=== PATIENT | female | born 1955 | race Caucasian/White ===

== ENCOUNTER 2018-01-13 19:53 | Observation (INO) | payer MEDICAID, OTHER ==
[2018-01-13] MEDS ORDERED: ONDANSETRON INJ 4 MG/2 ML VIAL IV ONE (20:18)
--- NOTE | 2018-01-13 20:44 | RAD ---
EXAM DESCRIPTION: Chest,1 View CLINICAL HISTORY: 62 years Female, chest pain COMPARISON: None. FINDINGS: No consolidation. No pneumothorax. No significant pleural effusion. Cardiac silhouette appears mildly enlarged. Osseous structures are unremarkable. IMPRESSION: No acute findings. Electronically signed by: Serg Wagoner MD 01/13/2018 8:42 PM CDT
--- NOTE | 2018-01-13 23:07 | ED.PDOC ---
History of Present Illness - General Chief Complaint: Chest Pain/MA Stated Complaint: CP, SOB, N/V, lightheaded Time Seen by Provider: 01/13/18 20:04 Source: patient, family Exam Limitations: no limitations - History of Present Illness Initial Comments: Says she hasn't felt right since noon today. Malaise, nausea, anxiety all of which she had with her MA in March. This afternoon she has had chest heaviness sporadically. During her heart cath in March one stent was placed but she was told she had another area of concern. Timing/Duration: 4-6 hours Severity: moderate Location: central Activities at Onset: none Prior Chest Pain/Cardiac Workup: cardiac cath, heart attack Improving Factors: nothing Worsening Factors: nothing Nitro Today/Relief: no nitro taken today Aspirin Treatment Today: 325 mg x 1, provided at home Associated Symptoms: chest pain, malaise, nausea/vomiting, shortness of breath, weakness Allergies/Adverse Reactions: Allergies NO KNOWN ALLERGY Allergy (Verified 01/13/18 21:54) Home Medications: Ambulatory Orders Albuterol Sulfate Nebs [Proventil Nebs] 2.5 mg INH BID 04/17/15 Cyclobenzaprine HCl [Flexeril] 5 mg PO TID PRN #45 tab 04/17/15 Ergocalciferol [Vitamin D] 50,000 unit PO WKLY 04/17/15 Escitalopram [Lexapro] 10 mg PO DAILY 04/17/15 Glipizide 20 mg PO DAILY 04/17/15 Insulin Glargine [Toujeo Solostar] 30 unit SC DAILY 04/17/15 Losartan Potassium 25 mg PO BID 04/17/15 Metformin HCl 1,000 mg PO BID 04/17/15 Trazodone HCl 50 mg PO DAILY 04/17/15 amLODIPine BESYLATE [Norvasc] 10 mg PO DAILY 04/17/15 Review of Systems - Review of Systems Constitutional: States: see HPI EENTM: States: no symptoms reported Respiratory: States: see HPI. Denies: cough Cardiology: States: see HPI, edema. Denies: syncope Gastrointestinal/Abdominal: States: see HPI, diarrhea, nausea. Denies: abdominal pain, constipation Genitourinary: States: no symptoms reported Musculoskeletal: States: no symptoms reported Skin: States: no symptoms reported Neurological: States: no symptoms reported Endocrine: States: no symptoms reported Hematologic/Lymphatic: States: no symptoms reported, other - Takes Brilinta Past Medical History (General) - Patient Medical History Hx Seizures: No Hx Stroke: No Hx Dementia: No Hx Asthma: No Hx of COPD: No Hx Cardiac Disorders: Yes - heart attack in 2016 Hx Congestive Heart Failure: Yes Hx Pacemaker: No Hx Hypertension: Yes Hx Thyroid Disease: Yes Hx Diabetes: Yes Hx Gastroesophageal Reflux: No Hx Renal Disease: No Hx of HIV: No Hx MRSA: No Surgical History: angioplasty, cholecystectomy - Vaccination History Hx Tetanus, Diphtheria Vaccination: Yes Hx Influenza Vaccination: Yes Hx Pneumococcal Vaccination: Yes - Social History Hx Tobacco Use: Yes Hx Alcohol Use: No - Female History Patient is a Female of Child Bearing Age (10 -59 yrs old): No Family Medical History - Family History Mother Family History: Unknown Living Status: Unknown Non Contributory this Encounter: Non Contributory for this Encounter Physical Exam - Physical Exam General Appearance: Alert, Comfortable, No apparent distress Eyes, Ears, Nose, Throat Exam: other - anicteric; pink conjunctiva Neck: supple, normal inspection Respiratory: normal breath sounds, no respiratory distress, no accessory muscle use Cardiovascular/Chest: regular rate, rhythm, no edema, no JVD, no murmur Gastrointestinal/Abdominal: non tender, soft, no pulsatile mass Extremity: non-tender, normal inspection, no pedal edema, no calf tenderness Neurologic: no motor/sensory deficits, alert, oriented x 3 Skin Exam: normal color, warm/dry Progress - Progress Progress: 01/13/18 23:04 Sleeping. Says she is asymptomatic at this time. 01/13/18 23:17 Atypical for ACS but with known disease on a recent cath. Asymptomatic, neg enzymes x 2, no EKG changes. Stable. - Results/Orders Results/Orders: Glu 232 Tr < 0.02 x 2 Hgb 14 - EKG/XRAY/CT EKG: Sinus, nonspecific ST T wave Chg, Abnormal Q waves Comments: Rate 80; nml axis; nml intervals; inf q waves; possible q in V3; flat T wav XRAY: chest - WNL - Consult/PCP Time Called: 23:07 Consult/PCP: Ab Keller Reason/Comments: Admit - Additional EKG/XRAY/Consults EKG #2: Sinus, nonspecific ST T wave Chg, Abnormal Q waves, Unchanged from Comments: Rate 72; no change from EKG #1 Departure - Departure Clinical Impression: Chest pain Qualifiers: Chest pain type: unspecified Qualified Code(s): R07.9 - Chest pain, unspecified Time of Disposition: 23:20 Disposition: Admit Patient Condition: Fair Home Medications: Ambulatory Orders Albuterol Sulfate Nebs [Proventil Nebs] 2.5 mg INH BID 04/17/15 Cyclobenzaprine HCl [Flexeril] 5 mg PO TID PRN #45 tab 04/17/15 Ergocalciferol [Vitamin D] 50,000 unit PO WKLY 04/17/15 Escitalopram [Lexapro] 10 mg PO DAILY 04/17/15 Glipizide 20 mg PO DAILY 04/17/15 Insulin Glargine [Toujeo Solostar] 30 unit SC DAILY 04/17/15 Losartan Potassium 25 mg PO BID 04/17/15 Metformin HCl 1,000 mg PO BID 04/17/15 Trazodone HCl 50 mg PO DAILY 04/17/15 amLODIPine BESYLATE [Norvasc] 10 mg PO DAILY 04/17/15
[2018-01-14] MEDS ORDERED: GLUCAGON INJ 1 MG VIAL SUBCU PRN (00:06)
[2018-01-14] MEDS ORDERED: DEXTROSE 50% 25 GM/50 ML SYG IV PRN (00:06)
[2018-01-14] MEDS ORDERED: NITROGLYCERIN 0.4 MG 25 EA TAB SL PRN (00:06)
[2018-01-14] MEDS ORDERED: MORPHINE SULFATE INJ 10 MG/ML VIAL IV PRN (00:06)
[2018-01-14] MEDS ORDERED: ASPIRIN (CHEWABLE) 81 MG TAB PO ONE (00:06)
[2018-01-14] MEDS ORDERED: ACETAMINOPHEN 325 MG TAB PO PRN (00:06)
[2018-01-14] MEDS ORDERED: IV SET AND CAP CHANGE INJ INJ SCH (00:30)
[2018-01-14] MEDS ORDERED: ENOXAPARIN SODIUM 100 MG/ML SYG SUBCU ONE (00:31)
[2018-01-14] MEDS ORDERED: ENOXAPARIN SODIUM 30 MG/0.3 ML SYG SUBCU ONE (00:32)
[2018-01-14] MEDS: SODIUM CHLORIDE 0.9% (FLUSH) 10 ML SYG IV PRN ×2 (00:42→06:13)
[2018-01-14] MEDS ORDERED: PANTOPRAZOLE SODIUM IV 40 MG VIAL IV SCH (06:30)
[2018-01-14] MEDS ORDERED: INSULIN LISPRO 100 UNITS/ML PEN SUBCU SCH (07:00)
[2018-01-14 08:34] VITALS: O2SAT 97
[2018-01-14] MEDS ORDERED: ENOXAPARIN SODIUM 100 MG/ML SYG SUBCU SCH (09:00)
[2018-01-14] MEDS ORDERED: SODIUM CHLORIDE 0.9% (FLUSH) 10 ML SYG IV SCH (09:00)
[2018-01-14] MEDS ORDERED: NITROGLYCERIN 0.4 MG/HR PATCH TOP SCH (09:00)
[2018-01-14] MEDS ORDERED: ENOXAPARIN SODIUM 30 MG/0.3 ML SYG SUBCU SCH (09:00)
[2018-01-14 10:02] VITALS: BP 144/73; TEMP 98.1
--- NOTE | 2018-01-14 14:29 | SSS ---
SUPERVISING PHYSICIAN: Mickey Shook MD CHIEF COMPLAINT: Chest pain. HISTORY OF PRESENT ILLNESS: Ms. John is a 62 year-old patient that initially presented to the Emergency Department on the evening of 01-13-18 complaining of some shortness of breath that she had been having since noon. She noted she has a history of anxiety and has been recently working to move from [place] to [place] and started experiencing what she thought was a panic attack but has had an MRI in March of 2017 and notes that her symptoms were similar to the ones she experienced at this time. She noted she was having some chest pain sporadically along with some nausea and general malaise. Initial cardiac enzymes in the Emergency Room showed negative troponins x2 at less than 0.02. Her laboratory studies showed she had a mild leukocytosis of 11,500, normal differential and chemistries showed normal electrolytes with a calcium of 9 and magnesium low at 1.6. Liver functions were all within normal limits and her lipid panel showed triglycerides at 171 and normal cholesterol with HDL at 32 and LDL at 88. She also had a normal TSH. EKG x2 showed no acute changes, shows sinus rhythm with no acute ST or T-wave changes to indicate any ischemia or acute myocardial infarction. Dr. Perkins, Emergency Room physician, requested that the patient be placed in observation overnight for continued cardiac telemetry and further cardiac enzymes in the morning given the patient' s risk factors that she is obese with body mass index of 48, recent MRI in the last year, diabetic and has hypertension/ and a history of cardiovascular disease. The patient was in stable condition and was placed in observation for further evaluation and treatment for rule out chest pain. PAST MEDICAL HISTORY: 1. Hypertension. 2. Diabetes mellitus type 2. 3. General anxiety disorder. 4. Depression. 5. Early Alzheimer's. 6. Previous myocardial infarction in March 2017 x1 stint. 7. Congestive heart failure without echocardiogram for review at time of admission. 8. Pelvis fracture within the last year secondary to a fall. 9. Chronic obstructive pulmonary disease, currently smoking. PAST SURGICAL HISTORY: 1. Cholecystectomy. 2. Left lower leg surgery for fracture repair. 3. Bilateral cataract removal. 4. Tonsillectomy and adenoidectomy. CURRENT MEDICATIONS: 1. Albuterol nebs 2.5 mg b.i.d. 2. Toujeo 75 units daily. 3. NovoLog 35 units 3 times a day. 4. Dulera 200-5 mcg per actuation, one actuation daily. 5. Robaxin 500 mg every 8 hours as needed. 6. Xanax 1 mg at bedtime. 7. Aspirin spray, one spray both nostrils 3 times a day. 8. Meloxicam 15 mg daily. 9. Zoloft 25 mg daily. 10 Bentyl 20 mg every 6 hours as needed. 11. Tramadol 50 mg every 6 hours a needed for pain. 12. Singulair 10 mg daily. 13. Diflucan 200 daily. 14. Toviaz 8 mg daily. 15. Lyrica 75 mg b.i.d. 16. Phenergan 25 mg every 8 hours as needed for nausea. 17. Prinivil 10 mg daily. 18. Lipitor 80 mg daily. 19. Brilinta 90 mg b.i.d. 20 Kombiglyze-XR 5-1000 mg, one tablet daily. 21. Trazodone 150 mg daily. ALLERGIES: NO KNOWN DRUG ALLERGIES. FAMILY HISTORY: Positive for diabetes, hypertension, leukemia. SOCIAL HISTORY: The patient is disabled, just recently moved to [place]. She is , lives with her son. She denies ever drinking alcohol. She is a current smoker, approximately one pack a day. REVIEW OF SYSTEMS: CONSTITUTIONAL: As noted, generalized weakness with malaise but no fevers or chills. HEENT: No reported ear ache, sore throat, nasal congestion. CHEST: As noted, history of some shortness of breath but denies any coughing or wheezing. HEART: As noted in history of present illness, chest pains but denies any syncope and no syncopal episodes or palpitations. GASTROINTESTINAL: Denies abdominal pain or constipation, notes she has some diarrhea associated with her metformin and has had some nausea which she associated with her chest pain. GENITOURINARY: Denied dysuria, hematuria, polyuria or other urinary symptoms. NEUROLOGICAL: Denies syncopal episodes, ataxia, seizures or other neurological deficits. PHYSICAL EXAMINATION: VITAL SIGNS: Initial vital signs in the Emergency Room showed a temperature of 98.9 with a pulse of 89, blood pressure 126/89, saturation 96% on room air with respirations 18. At discharge temperature was 98.1, pulse 62, blood pressure 144/72, respirations 16, saturation 97% on nasal cannula at 2 liters. Admission weight was 131.7 kg. GENERAL: The patient is resting comfortably, appears to be in no acute distress. Denies any pain and is alert. HEENT: Tympanic membranes clear bilaterally. Pharynx is pink and moist with no lesions noted. NECK: Supple, non-tender, full range of motion, no jugular venous distention. CHEST: Lungs are clear bilaterally, just slightly diminished towards the bases but no rhonchi, rales, or wheezes noted. CARDIOVASCULAR: Heart regular rate and rhythm with no appreciable murmurs, rubs, or gallops. ABDOMEN: Obese, soft, non-tender, positive bowel sound. EXTREMITIES: No cyanosis, clubbing, or edema. NEUROLOGIC: She is alert and oriented x3 with no obvious motor or sensory deficits. LABORATORY: CBC on admission to the Emergency Room showed a mild leukocytosis of 11,500 with a hemoglobin of 14.1 and hematocrit 44.1 with platelet count 217, 000. Differential showed to be without a left shift. Coagulation studies showed a PT of 10.3 and PTT of 32.3. Chemistries showed normal electrolytes, potassium 4.1, calcium 9.0, magnesium slightly low at 1.6. Liver functions all within normal limits. He had 3 sets of troponins which were all less than 0.02 and she has additional CPKs that were all within normal limits at 21, 22 and 24. Lipid panel showed triglycerides of 171, normal cholesterol at 141 with an LDL of 88.7, HCL 32, normal TSH at 1.34. RADIOLOGY: She had a chest x-ray, single view chest in the Emergency Department per radiology interpretation showed no acute findings. HOSPITAL COURSE: Ms. John, as noted above was initially seen in the Emergency Room late in the evening of 01/13/18 for chest pain. On presentation to the Emergency Room she had taken a Xanax and was comfortable and was reporting no actual chest pains at that time. She was showing no acute changes on EKG and was shown to be hemodynamically stable with blood pressure as noted above. Given her risk factors, that she is a chronic smoker, diabetic, obese and with previous history of myocardial infarction, Dr. Perkins, Emergency Room physician , requested the patient be admitted for observation. She was placed in observation and at time of admission was without any complaints, resting comfortably. Overnight, she had no recurrence of chest pain, she remained hemodynamically stable as noted on discharge blood pressure and was showing no changes on EKG or continuous cardiac telemetry. It was felt that the patient had more likely had an anxiety attack for which she had taken a Xanax early in the afternoon before going to the Emergency Room which probably contributed to her symptoms. It is felt that she was shown joe be clinically stable and without any acute evidence of a cardiac event and was felt to be safe to discharge to continue with outpatient management and followup with Dr. Payton, her rugby union footballer, and Dr. Manley, her primary care physician. ASSESSMENT: 1. Chest pains without any acute evidence on EKG or cardiac enzymes to indicate an acute myocardial infarction. 2. History of anxiety with acute anxiety attack prior to admission to the Emergency Room, felt to be likely contributing to her symptomatology related to her admission diagnosis of chest pain with status post resolving with Xanax. 3. Hypertension. 4. Diabetes mellitus type 2. 5. History of depression. 6. Alzheimer's disease with some mild dementia. 7. History of previous myocardial infarction in March of 2017 with a stint placement x1 by Dr. Payton. 8. History of congestive heart failure with no electrocardiogram available at time of admission and patient showing no exacerbation, felt to probably more diastolic. 9. Morbid obesity as noted with a body mass index of 48.3. 10. Nicotine addiction in a chronic smoker. 11. History of chronic obstructive pulmonary disease without signs of exacerbation in a chronic smoker. PLAN: As noted above, the patient was admitted and was observed and was without any acute signs or symptoms of an acute cardiac event. After further discussion with the patient, she is to be discharged home to followup with Dr. Manley and Dr. Payton this week. She is to resume her home medications as previous to the hospitalization. She is encouraged to stop smoking and to follow a diabetic diet including low fat and low cholesterol. She is encouraged to increase her activities as much as possible to help with weight loss. She voiced that she is moving from [place] to [place] and is wanting to establish with providers in [place]. Information was given to the patient and family on providers in [place] and she will work to seek a new primary care physician in the near future but is encouraged to followup with Dr. Manley until she can do so. She was discharged in stable condition and given instructions to return to the Emergency Room or call 911 should she have return of chest pains or any concerning symptoms. #[id number] [facility]
[2018-01-14] MEDS ORDERED: REMOVE OLD PATCH TOP SCH (21:00)
[2018-01-15] MEDS ORDERED: ASPIRIN TABLET 325 MG TAB PO SCH (09:00)
== END 2018-01-14 10:47 | disposition home or self-care (01) ==
LOC: ER 19:53 → MS 23:49
PROVIDERS: ADMIT Nurse Practitioner Family; ATTEND Nurse Practitioner Family
DX: R07.89 Other chest pain (principal); F41.1 Generalized anxiety disorder; I11.0 Hypertensive heart disease with heart failure; E11.9 Type 2 diabetes mellitus without complications; F32.9 Major depressive disorder, single episode, unspecified; E83.42 Hypomagnesemia; R11.2 Nausea with vomiting, unspecified; G30.0 Alzheimer's disease with early onset; F02.80 Dementia in other diseases classified elsewhere, unspecified severity, without behavioral disturbance, psychotic disturbance, mood disturbance, and anxiety; I25.2 Old myocardial infarction; I50.9 Heart failure, unspecified; E66.01 Morbid (severe) obesity due to excess calories; Z68.42 Body mass index [BMI] 45.0-49.9, adult; J44.9 Chronic obstructive pulmonary disease, unspecified; F17.210 Nicotine dependence, cigarettes, uncomplicated; E07.9 Disorder of thyroid, unspecified; Z79.4 Long term (current) use of insulin; Z79.02 Long term (current) use of antithrombotics/antiplatelets; Z79.82 Long term (current) use of aspirin; Z79.1 Long term (current) use of non-steroidal anti-inflammatories (NSAID); Z79.899 Other long term (current) drug therapy; Z95.5 Presence of coronary angioplasty implant and graft; Z82.49 Family history of ischemic heart disease and other diseases of the circulatory system
CPT/HCPCS: 96372; 96375; J1650 ×2; J2405; J1815; 82553 ×3; 80053; 82948; 80061; 36415 ×2; 85025; 82550 ×3; 83735; 85730; 85610; 84443; 84484 ×3; 36416; 87070; 71045; 94760 ×2; 99406; 99285; 93005 ×2; 96374

== ENCOUNTER 2018-01-21 21:43 | Inpatient (IN) | payer OTHER ==
--- NOTE | 2018-01-21 22:03 | ED.PDOC ---
History of Present Illness - General Chief Complaint: GI Problem Stated Complaint: constipation, fever,anxiety Time Seen by Provider: 01/21/18 21:46 Source: patient Exam Limitations: no limitations - History of Present Illness Initial Comments: Hermila John 62 y/o female came to ER with multiple episodes of nausea/ vomiting tonight and was shaky and feeling weak also on arrival at [facility] noted had t-101.2.Denies cough,diarrhea but stated been constipated for 4 days. Timing/Duration: 4-6 hours Severity: moderate Associated Symptoms: nausea/vomiting, other - see hpi Allergies/Adverse Reactions: Allergies NO KNOWN ALLERGY Allergy (Verified 01/14/18 05:32) Home Medications: Ambulatory Orders Insulin Glargine [Toujeo Solostar] 75 unit SC DAILY 04/17/15 Trazodone HCl 150 mg PO DAILY 04/17/15 Albuterol Sulfate Nebs [Proventil Nebs] 2.5 mg INH BID 01/14/18 Alprazolam [Xanax] 1 mg PO BEDTIME 01/14/18 Atorvastatin Calcium [Lipitor] 80 mg PO DAILY 01/14/18 Dicyclomine HCl [Bentyl] 20 mg PO Q6H PRN 01/14/18 Fesoterodine Fumarate [Toviaz] 8 mg PO DAILY 01/14/18 Fluconazole [Diflucan] 200 mg PO DAILY 01/14/18 Insulin Aspart [Novolog Flexpen] 35 unit SC TIDFD 01/14/18 Lisinopril [Prinivil] 10 mg PO DAILY 01/14/18 Meloxicam [Mobic] 15 mg PO DAILY 01/14/18 Methocarbamol 500 mg PO Q8H PRN 01/14/18 Mometasone Furoate-Formoterol [Dulera 200-5 Mcg/Act] 1 aer IN DAILY 01/14/18 Montelukast [Singulair] 10 mg PO DAILY 01/14/18 Oxymetazoline Nasal [place] [Afrin Nasal [place]] 1 spray BNAS TID 01/14/18 Pregabalin [Lyrica] 75 mg PO BID 01/14/18 Promethazine Tab [Phenergan Tablet] 25 mg PO Q8H PRN 01/14/18 Saxagliptin-Metformin HCl [Kombiglyze Xr 5-1000 mg] 1 tab PO DAILY 01/14/18 Sertraline HCl [Zoloft] 25 mg PO DAILY 01/14/18 Ticagrelor [Brilinta] 90 mg PO BID 01/14/18 Tramadol HCl 50 mg PO Q6H PRN 01/14/18 Review of Systems - Review of Systems Constitutional: States: fever EENTM: States: no symptoms reported Respiratory: States: no symptoms reported Cardiology: States: no symptoms reported Gastrointestinal/Abdominal: States: see HPI Musculoskeletal: States: no symptoms reported Skin: States: no symptoms reported Past Medical History (General) - Patient Medical History Hx Seizures: No Hx Stroke: Yes Hx Dementia: No Hx Asthma: Yes Hx of COPD: Yes Hx Cardiac Disorders: Yes - SD Hx Congestive Heart Failure: Yes Hx Pacemaker: No Hx Hypertension: Yes Hx Thyroid Disease: Yes Hx Diabetes: Yes Hx Gastroesophageal Reflux: No Hx Renal Disease: No Hx of HIV: No Hx MRSA: Yes MRSA Source:: Wound Surgical History: cholecystectomy, tonsillectomy, other - cardiac stent - Vaccination History Hx Tetanus, Diphtheria Vaccination: Yes Hx Influenza Vaccination: Yes Hx Pneumococcal Vaccination: Yes - Social History Hx Tobacco Use: Yes Hx Alcohol Use: No Hx Substance Use: No Hx Physical Abuse: No Hx Emotional Abuse: No - Activities of Daily Living Patient Lives Alone: No - son Grooming Ability: Standby Assistance Toileting Ability: Standby Assistance - Female History Patient is a Female of Child Bearing Age (10 -59 yrs old): No - Triage Comment ED Triage Comment: shaking uncontrollabley, constipated and lower abdomen and back painful "when shaking" Family Medical History - Family History Mother Living Status: Unknown Hx Family Hypertension: Yes - multiple family members Hx Cardiac Disease: Yes - multiple family members Hx Family Diabetes: Yes - multiple family members Hx Family Cancer: Yes - leukemia-brother Physical Exam - Physical Exam General Appearance: Alert, Comfortable, No apparent distress Eye Exam: bilateral normal Ears, Nose, Throat: hearing grossly normal, normal ENT inspection, other - multiple decayed teeth Neck: non-tender, full range of motion, supple Respiratory: chest non-tender, lungs clear, normal breath sounds Cardiovascular/Chest: normal peripheral pulses, regular rate, rhythm, no murmur Peripheral Pulses: radial,right: 2+, radial,left: 2+ Gastrointestinal/Abdominal: normal bowel sounds, soft, tenderness - left side abdomen no peritoneal signs Rectal Exam: normal exam, normal rectal tone, heme negative stool Back Exam: no CVA tenderness, no vertebral tenderness Extremity: no pedal edema, no calf tenderness Neurologic: no motor/sensory deficits, alert, oriented x 3 Skin Exam: normal color, warm/dry Lymphatic: no adenopathy Progress - Progress Progress: 01/22/18 01:39 Last Vital Signs Temp 101.0 F H 01/22/18 01:13 Pulse 96 H 01/22/18 01:13 Resp 18 01/22/18 01:13 BP 120/70 01/22/18 01:13 Pulse Ox 93 L 01/22/18 01:13 01/22/18 01:47 Discuss test result with patient unable to find the source of her fever at this time nad need s to be admitted to hospital for further evaluation agreed with the plan - Results/Orders Results/Orders: Vital Signs - 8 hr 01/21/18 01/21/18 01/21/18 21:55 22:52 23:00 Temperature 101.2 F H Pulse Rate [106 106 H 105 H 104 H ] Respiratory 20 20 20 Rate Blood Pressure 155/71 118/70 115/56 [Left Arm] O2 Sat by Pulse 94 L 92 L 92 L Oximetry 01/22/18 01:13 Temperature 101.0 F H Pulse Rate [106 96 H ] Respiratory 18 Rate Blood Pressure 120/70 [Left Arm] O2 Sat by Pulse 93 L Oximetry 01/21/18 22:03 IV Care:Saline Lock per Protoc QSHIFT 01/21/18 22:39 Catheter:Straight .ONCE 01/21/18 23:11 Hold Metformin x 48Hrs [id number] 01/22/18 01:05 BLOOD CULTURE Stat Laboratory Results - last 24 hr 01/21/18 01/21/18 01/21/18 21:56 22:03 22:03 WBC 17.9 H RBC 5.07 Hgb 14.9 Hct 45.6 MCV 90.0 MCH 29.4 MCHC 32.6 L RDW 14.6 H Plt Count 228 MPV 10.3 Absolute Neuts (auto) 16.20 H Absolute Lymphs (auto) 0.90 L Absolute Monos (auto) 0.60 Absolute Eos (auto) 0.10 Absolute Basos (auto) 0.10 Neutrophils % 90.7 H Lymphocytes % 4.9 L Monocytes % 3.5 Eosinophils % 0.6 L Basophils % 0.3 PT 10.5 INR 1.05 PTT (SP) 23.9 Sodium 139 Potassium 5.0 Chloride 100 L Carbon Dioxide 28 Anion Gap 16.0 BUN 22 H Creatinine 0.97 BUN/Creatinine Ratio 22.7 H POC Glucose 182 H Random Glucose 214 H Serum Osmolality 287.3 Lactic Acid 1.9 Calcium 9.4 Magnesium 1.4 L Total Bilirubin 0.6 Direct Bilirubin 0.2 Indirect Bilirubin 0.4 AST 31 ALT 24 Alkaline Phosphatase 126 H Creatine Kinase 35 CK-MB (CK-2) 0.8 CK-MB (CK-2) % Not Reportable Troponin I < 0.02 Serum Total Protein 7.8 Albumin 3.7 Lipase Urine Color Urine Appearance Urine pH Ur Specific [place] Urine Protein Urine Glucose (UA) Urine Ketones Urine Blood Urine Nitrite Urine Bilirubin Urine Urobilinogen Ur Leukocyte Esterase Urine RBC Urine WBC Ur Epithelial Cells Urine Bacteria Urine Mucus Stool Occult Blood 01/21/18 01/21/18 01/22/18 22:32 23:42 00:08 WBC RBC Hgb Hct MCV MCH MCHC RDW Plt Count MPV Absolute Neuts (auto) Absolute Lymphs (auto) Absolute Monos (auto) Absolute Eos (auto) Absolute Basos (auto) Neutrophils % Lymphocytes % Monocytes % Eosinophils % Basophils % PT INR PTT (SP) Sodium Potassium Chloride Carbon Dioxide Anion Gap BUN Creatinine BUN/Creatinine Ratio POC Glucose Random Glucose Serum Osmolality Lactic Acid Calcium Magnesium Total Bilirubin Direct Bilirubin Indirect Bilirubin AST ALT Alkaline Phosphatase Creatine Kinase CK-MB (CK-2) CK-MB (CK-2) % Troponin I Serum Total Protein Albumin Lipase 23 Urine Color Jessica H Urine Appearance Clear Urine pH 5.5 Ur Specific [place] >= 1.030 Urine Protein Negative Urine Glucose (UA) Negative Urine Ketones 15 H Urine Blood Negative Urine Nitrite Negative Urine Bilirubin Moderate Urine Urobilinogen 1.0 Ur Leukocyte Esterase Negative Urine RBC 1-3 Urine WBC 3-5 H Ur Epithelial Cells 10-20 Urine Bacteria 2+ H Urine Mucus Small Stool Occult Blood Negative - EKG/XRAY/CT XRAY: chest - no acute abnormalities CT Ordered: Yes - abd/p-no acute findings except constipation Departure - Departure Clinical Impression: Fever and chills, Neutrophilic leukocytosis, Diabetes 1.5, managed as type 1 Time of Disposition: :44 Disposition: Admit Patient Condition: Fair Departure Forms: Patient Portal Self Enrollment Home Medications: Ambulatory Orders Insulin Glargine [Toujeo Solostar] 75 unit SC DAILY 04/17/15 Trazodone HCl 150 mg PO DAILY 04/17/15 Albuterol Sulfate Nebs [Proventil Nebs] 2.5 mg INH BID 01/14/18 Alprazolam [Xanax] 1 mg PO BEDTIME 01/14/18 Atorvastatin Calcium [Lipitor] 80 mg PO DAILY 01/14/18 Dicyclomine HCl [Bentyl] 20 mg PO Q6H PRN 01/14/18 Fesoterodine Fumarate [Toviaz] 8 mg PO DAILY 01/14/18 Fluconazole [Diflucan] 200 mg PO DAILY 01/14/18 Insulin Aspart [Novolog Flexpen] 35 unit SC TIDFD 01/14/18 Lisinopril [Prinivil] 10 mg PO DAILY 01/14/18 Meloxicam [Mobic] 15 mg PO DAILY 01/14/18 Methocarbamol 500 mg PO Q8H PRN 01/14/18 Mometasone Furoate-Formoterol [Dulera 200-5 Mcg/Act] 1 aer IN DAILY 01/14/18 Montelukast [Singulair] 10 mg PO DAILY 01/14/18 Oxymetazoline Nasal [place] [Afrin Nasal [place]] 1 spray BNAS TID 01/14/18 Pregabalin [Lyrica] 75 mg PO BID 01/14/18 Promethazine Tab [Phenergan Tablet] 25 mg PO Q8H PRN 01/14/18 Saxagliptin-Metformin HCl [Kombiglyze Xr 5-1000 mg] 1 tab PO DAILY 01/14/18 Sertraline HCl [Zoloft] 25 mg PO DAILY 01/14/18 Ticagrelor [Brilinta] 90 mg PO BID 01/14/18 Tramadol HCl 50 mg PO Q6H PRN 01/14/18 Decision To Admit - Decistion To Admit Decision to Admit Reason: Admit from ER Decision to Admit Date: 01/22/18 - D/W Fabby Nettles-ANP/Hospitalist Decision to Admit Time: 01:44
--- NOTE | 2018-01-21 22:38 | RAD ---
EXAM DESCRIPTION: Chest,1 View CLINICAL HISTORY: 62 years Female fever COMPARISON: 01/13/2018 FINDINGS: The cardiomediastinal silhouette appears unremarkable. No consolidating infiltrates or pleural effusions. No pneumothorax. IMPRESSION: No acute abnormality is identified. Electronically signed by: Rajni Melendez MD 01/21/2018 10:37 PM CDT
[2018-01-21] MEDS ORDERED: SODIUM CHLORIDE 0.9% 1000ML 1,000 ML IVS ONE (23:11)
[2018-01-21] MEDS ORDERED: MAGNESIUM SULFATE PREMIX 2GM 2 GM in PREMIX BAG 1 BAG IVPB ONE (23:12)
[2018-01-21] MEDS ORDERED: ACETAMINOPHEN 500 MG TAB PO ONE (23:40)
[2018-01-21] MEDS ORDERED: ACETAMINOPHEN 500 MG TAB ONE (23:41)
[2018-01-22] MEDS ORDERED: MAGNESIUM SULFATE PREMIX 2GM 50 ML IVPB ONE (00:02)
--- NOTE | 2018-01-22 00:16 | CT ---
EXAM DESCRIPTION: CT ABDOMEN AND PELVIS WITHOUT CONTRAST CLINICAL HISTORY: Diffuse abdominal pain/N/V COMPARISON: None Available. TECHNIQUE: CT of the abdomen and pelvis without IV contrast. Evaluation of the solid organs and vasculature is suboptimal due to lack of IV contrast. DLP: 1637 mGy-cm FINDINGS: Lung Bases: The visualized lung bases are clear. Bones: No destructive bone lesions identified. Degenerative change of the spine. Abdomen: Liver: The liver has normal size and density. Gallbladder: Prior cholecystectomy. Spleen, Pancreas, and Adrenal Glands: The spleen, pancreas, and adrenal glands are unremarkable. Kidneys: The kidneys have normal size and contour without evidence of hydronephrosis. No obstructing ureteral calculi. Vasculature: The aorta and IVC have normal caliber and position. Stomach: The stomach and duodenum have normal course. Other: No free intraperitoneal air. No free fluid or lymphadenopathy. Tiny fat-containing ventral hernia. Pelvis: Bladder: Urinary bladder is unremarkable. Bowel: No dilated loops of large or small bowel. Large amount stool in colon. Appendix: Normal appendix. Pelvis: Uterus is not enlarged. IMPRESSION: 1. No acute inflammatory or obstructive process identified. 2. Large amount of stool. Correlation for history of constipation. This exam was performed according to our departmental dose-optimization program, which includes automated exposure control, adjustment of the mA and/or kV according to patient size and/or use of iterative reconstruction technique. Electronically signed by: Homer Lincoln 01/22/2018 12:15 AM CDT
[2018-01-22] MEDS ORDERED: cefTRIAXone SODIUM 2 GM in SODIUM CHL 0.9% 100ML MINI-BAG 100 ML IVPB ONE (01:45)
[2018-01-22] MEDS ORDERED: SODIUM CHL 0.9% 100ML MINI-BAG 100 ML IVPB ONE (01:58)
--- NOTE | 2018-01-22 02:01 | HP ---
SUPERVISING PHYSICIAN: Haley Martins MD CHIEF COMPLAINT: Abdominal pain. HISTORY OF PRESENT ILLNESS: This is a 62-year-old female who came to the Emergency Room with nausea, vomiting and abdominal pain along with some tremors and shaking. Her son states she was out on the porch and almost seemed to be convulsing. He put her in the car and brought her to the Emergency Room. There , she was noted to have a temperature of 101.2. She apparently has not had a bowel movement for the last 4 days, now 5 days. She does not state that she knew she had a fever prior to coming to the Emergency Room. Her workup in the Emergency Room included labs as well as CT scan of the abdomen and pelvis. She was noted to have an elevated white count of 17.9 and then recheck this morning was 19.5. She had been given an Rocephin infusion in the Emergency Room, but not started on any other antibiotic. Her CT scan of the abdomen was unremarkable except for the fact that she had a lot of stool in her colon. There was no indication of any inflammatory process going on at that time. Coagulation studies were normal. Chemistry indicates she might have a little bit of dehydration due to the increased BUN. Due to the abdominal pain, she was referred for admission. At the time of admission, the patient was in no distress. On exam, she does have left sided abdominal discomfort with palpation. PAST MEDICAL HISTORY: 1. Hypertension. 2. Type 2 diabetes mellitus. 3. General anxiety disorder. 4. Depression. 5. Early Alzheimer's. 6. Myocardial infarction. 7. Congestive heart failure. 8. Pelvic fracture secondary to a fall. 9. Chronic obstructive pulmonary disease. PAST SURGICAL HISTORY: 1. Percutaneous transluminal coronary angioplasty in March of 2017, but unsure of which vessel. 2. Cholecystectomy. 3. Left lower leg surgery due to fracture. 4. Bilateral cataract removal. 5. Tonsillectomy and adenoidectomy. CURRENT MEDICATIONS: 1. Albuterol 2.5 mg b.i.d. 2. Xanax 1 mg p.o. at bedtime. 3. Atorvastatin 80 mg p.o. daily. 4. Toviaz 8 mg p.o. at bedtime. 5. NovoLog 35 units subcutaneously t.i.d. 6. Toujeo 35 units subcutaneously daily. 7. Lisinopril 10 mg p.o. daily. 8. Meloxicam 15 mg p.o. daily. 9. Methocarbamol 500 mg p.o. q.8h. 10. Mometasone fuoate-formoterol 1 puff inhaled daily. 11. Singulair 10 mg p.o. as needed. 12. Afrin 1 spray t.i.d. 13. Lyrica 75 mg p.o. b.i.d. 14. Promethazine 25 mg p.o. q.8h. p.r.n. for nausea. 15. Saxagliptin-metformin 1 tab p.o. daily. 16. Zoloft 25 mg p.o. daily. 17. Brilinta 90 mg p.o. b.i.d. 18. Tramadol 50 mg q.6h. p.r.n. for pain. 19. Trazodone 150 mg p.o. daily. ALLERGIES: NO KNOWN DRUG ALLERGIES. FAMILY HISTORY: Diabetes, hypertension, leukemia. SOCIAL HISTORY: The patient does smoke 1 pack per day. No alcohol, no illicit drugs. She lives with her son and is disabled. REVIEW OF SYSTEMS: CONSTITUTIONAL: Positive for fever and chills. Upon further questioning, no recent weight loss or weight gain. Positive for malaise. HEENT: No headaches, vision changes, ear pain, nasal congestion or throat pain. RESPIRATORY: No cough, hemoptysis or pleuritic chest pain. CARDIOVASCULAR: No chest pain, palpitations or peripheral edema. GASTROINTESTINAL: Positive for nausea, vomiting, abdominal pain. No diarrhea, but positive for constipation. GENITOURINARY: No dysuria, frequency or flank pain. HEMATOLOGIC: No easy bruising and no transfusion reaction. MUSCULOSKELETAL: Positive for chronic osteoarthritis to several joints, but no muscle cramps or current joint swelling. ENDOCRINE: No polydipsia, polyuria or polyphagia. No heat or cold intolerance. NEUROLOGIC: No syncope, paresthesias or seizures. PHYSICAL EXAMINATION: VITAL SIGNS: Blood pressure 119/70. Heart rate 77. Respiratory rate 20. Temperature 98.4. Oxygen saturation 92%. GENERAL: Ms. John is a 62-year-old female in no active distress currently. HEENT: Normocephalic, atraumatic. Pupils are equal and reactive. No nasal drainage. Throat with moist mucosa. NECK: Supple. Midline trachea. No jugular venous distention. CHEST: Symmetrical with equal rise and fall of the chest with inspiration and expiration. Lung sounds are a little bit diminished, but otherwise clear to auscultation bilaterally. CARDIOVASCULAR: Regular rate and rhythm. Normal S1, S2. ABDOMEN: Soft, obese. Positive bowel sounds. Positive for tenderness to palpation to left upper and lower quadrants. GENITOURINARY: Deferred. EXTREMITIES: Lower extremities with trace ankle edema. Pulses 2+. Capillary refill is less than 2 seconds. NEUROLOGIC: The patient is alert and oriented. Moves all extremities. Extraocular movements are intact. LABORATORY: Labs and films are as discussed in history of present illness. ASSESSMENT: 1. Abdominal pain. 2. Constipation. 3. Urinary tract infection. 4. Chronic obstructive pulmonary disease without acute exacerbation. 5. Diabetes mellitus. 6. History of coronary artery disease with myocardial infarction in March of 2017 with continuous Brilinta therapy. 7. Neuropathy. PLAN: CT scan of the abdomen and pelvis is negative for any acute inflammatory process, however, she does have leukocytosis. I will treat the constipation with mag citrate and hopefully clear her out. We will monitor how her pain responds to this. I will put her on some antibiotics for the urinary tract infection and followed her labs. It does appear that she is dehydrated, so IV fluids will assist with this. I am also going to place her on a clear liquid diet and advance as tolerated. We will continue all her home medications including medications for chronic obstructive pulmonary disease. I also resumed her diabetes medications. I resumed her Brilinta due to the fact that she had a stent in 2017. We will continue to DVT and GI ulcer prophylaxis. Hopefully if she improves greatly she can be discharged in the next 24 to 48 hours. #[id number] [facility]
[2018-01-22] MEDS ORDERED: ACETAMINOPHEN 325 MG TAB PO PRN (02:57)
[2018-01-22] MEDS ORDERED: MORPHINE SULFATE INJ 10 MG/ML VIAL IV PRN (02:57)
[2018-01-22] MEDS ORDERED: SODIUM CHLORIDE 0.9% (FLUSH) 10 ML SYG IV PRN (02:57)
[2018-01-22] MEDS ORDERED: ONDANSETRON INJ 4 MG/2 ML VIAL IV PRN (02:57)
[2018-01-22] MEDS ORDERED: IV SET AND CAP CHANGE INJ INJ SCH (03:00)
[2018-01-22] MEDS ORDERED: GLUCAGON INJ 1 MG VIAL SUBCU PRN (03:11)
[2018-01-22] MEDS ORDERED: DEXTROSE 50% 25 GM/50 ML SYG IV PRN (03:11)
[2018-01-22] MEDS ORDERED: traMADol HCL 50 MG TAB PO PRN (03:15)
[2018-01-22] MEDS ORDERED: MONTELUKAST 10 MG TAB PO SCH (03:30)
[2018-01-22] MEDS: INSULIN LISPRO 100 UNITS/ML PEN SUBCU SCH ×4 (07:36→21:19)
--- NOTE | 2018-01-22 08:51 | RAD ---
EXAM DESCRIPTION: Abdomen Flat Upright CLINICAL HISTORY: abd pain COMPARISON: CT abdomen pelvis January 21, 2018 IMPRESSION: AP supine and upright views of the abdomen show a mildly dilated air-filled loops of small bowel central abdomen. Normal amount of air throughout the colon is seen. Findings suggest ileus versus mild partial distal small bowel obstruction. No obvious free intraperitoneal air is seen. No significant air-fluid levels are seen although upright view is significantly limited secondary to patient body habitus and image technique. Surgical clips from cholecystectomy are seen. Visualized lung bases are unremarkable. Electronically signed by: Deion Jauregui MD 01/22/2018 8:50 AM CDT
[2018-01-22] MEDS: NICOTINE PATCH 21 MG TD SCH (09:19)
[2018-01-22] MEDS ORDERED: MAGNESIUM CITRATE 300 ML BTTL PO ONE (09:32)
[2018-01-22] MEDS: SODIUM CHLORIDE 0.9% 1000ML 1,000 ML IVS PRN ×2 (10:47→20:43)
[2018-01-22] MEDS: SERTRALINE HCL 50 MG TAB PO SCH (10:52)
[2018-01-22] MEDS: LISINOPRIL 10 MG TAB PO SCH (10:52)
[2018-01-22] MEDS: PREGABALIN 75 MG CAP PO SCH ×2 (10:52→20:44)
[2018-01-22] MEDS: ATORVASTATIN 20 MG TAB PO SCH (10:52)
[2018-01-22] MEDS: SODIUM CHLORIDE 0.9% (FLUSH) 10 ML SYG IV SCH ×2 (10:53→20:45)
[2018-01-22] MEDS ORDERED: PROMETHAZINE HCL 25 MG TAB PO PRN (12:10)
[2018-01-22] MEDS ORDERED: NON-FORMULARY MEDICATION 1 EA MIS (Methocarbamol [Methocarbamol] 500 MG) PO PRN (12:10)
--- NOTE | 2018-01-22 12:15 | US ---
EXAM DESCRIPTION: Abdomen,Complete CLINICAL HISTORY: abd pain COMPARISON: None available. FINDINGS: Aorta: The abdominal aorta appears slightly dilated, measuring up to 3.3 cm transverse diameter at the level of the mid abdominal aorta. IVC: Visualized portions normal. Ascites: None. Pancreas: Partially obscured by overlying bowel gas but visualized portions normal. Liver: The liver is slightly enlarged, measuring 17 or 18 cm in length. No mass or other focal liver lesion. No intrahepatic biliary ductal dilation. Physiologic flow is noted in the main portal vein, but the portal vein appears slightly dilated, measuring up to 14 or 15 mm diameter. Gallbladder/Common Duct: The gallbladder is surgically absent. The common duct measures seven or 8 mm diameter at the marcell hepatis, slightly dilated but this is commonly seen in postcholecystectomy patients. Right Kidney: The right kidney measures 11.7 cm in length and is otherwise unremarkable. Spleen: The spleen is enlarged, measuring 13 to 14 cm in length. No mass or other focal splenic lesion. Left Kidney: The left kidney measures 10.1 cm in length and is otherwise unremarkable. IMPRESSION: Mild hepatosplenomegaly without ascites or focal liver lesion. Abdominal aortic aneurysm measuring up to 3.3 cm diameter. Follow-up imaging every three years is recommended to document stability. Status post cholecystectomy with mild prominence of the common bile duct, commonly seen in postcholecystectomy patients and doubtful clinical significance. Electronically signed by: Bora Stevenson MD 01/22/2018 11:45 AM CDT
[2018-01-22] MEDS: SAXAGLIPTIN PO SCH (12:16)
[2018-01-22] MEDS: NON-FORMULARY MEDICATION 1 EA MIS (Ticagrelor [Brilinta] 90 MG) PO SCH ×2 (12:16→20:44)
[2018-01-22] MEDS: METFORMIN PO SCH (12:16)
[2018-01-22] MEDS: [UNRECOGNIZED DRUG - OTHER] PO SCH (12:16)
[2018-01-22] MEDS: ENOXAPARIN SODIUM 40 MG/0.4 ML SYG SUBCU SCH (12:18)
[2018-01-22] MEDS: PANTOPRAZOLE SODIUM IV 40 MG VIAL IV SCH (12:44)
[2018-01-22] MEDS: ALBUTEROL SULFATE 2.5 MG/3 ML VIAL NEB SCH (20:37)
[2018-01-22] MEDS: traZODone HCL 50 MG TAB PO SCH (20:44)
[2018-01-22] MEDS: TOVIAZ 8 MG PO SCH (20:44)
[2018-01-22] MEDS: ALPRAZolam 0.5 MG TAB PO SCH (20:44)
[2018-01-22] MEDS ORDERED: TOLTERODINE TARTRATE ER 4 MG CAP PO SCH (21:00)
[2018-01-22] MEDS ORDERED: FESOTERODINE FUMARATE 8 MG PO SCH (21:00)
[2018-01-23] MEDS: SODIUM CHLORIDE 0.9% 1000ML 1,000 ML IVS PRN ×2 (07:28→19:28)
[2018-01-23] MEDS: INSULIN LISPRO 100 UNITS/ML PEN SUBCU SCH ×4 (07:31→20:54)
[2018-01-23] MEDS: ALBUTEROL SULFATE 2.5 MG/3 ML VIAL NEB SCH ×2 (08:49→20:30)
[2018-01-23] MEDS: SERTRALINE HCL 50 MG TAB PO SCH (09:22)
[2018-01-23] MEDS: NICOTINE PATCH 21 MG TD SCH (09:22)
[2018-01-23] MEDS: PREGABALIN 75 MG CAP PO SCH ×2 (09:23→20:53)
[2018-01-23] MEDS: ATORVASTATIN 20 MG TAB PO SCH (09:23)
[2018-01-23] MEDS: LISINOPRIL 10 MG TAB PO SCH (09:23)
[2018-01-23] MEDS: NON-FORMULARY MEDICATION 1 EA MIS (Ticagrelor [Brilinta] 90 MG) PO SCH ×2 (09:24→20:54)
[2018-01-23] MEDS: METFORMIN PO SCH (09:24)
[2018-01-23] MEDS: [UNRECOGNIZED DRUG - OTHER] PO SCH (09:24)
[2018-01-23] MEDS: SAXAGLIPTIN PO SCH (09:24)
[2018-01-23] MEDS: SODIUM CHLORIDE 0.9% (FLUSH) 10 ML SYG IV SCH ×2 (09:25→20:54)
[2018-01-23] MEDS: POLYETHYLENE GLYCOL 3350 17 GM PCKT PO SCH (09:34)
[2018-01-23] MEDS: INSULIN GLARGINE 75 UNIT SC SCH (10:55)
--- NOTE | 2018-01-23 10:57 | PN ---
SUPERVISING PHYSICIAN: Haley Martins MD DATE: 01/23/18 SUBJECTIVE: The patient feels a lot better today than she did yesterday. She had several bowel movements yesterday and they were large. She tolerated her clear liquid diet without any difficulty. OBJECTIVE: VITAL SIGNS: Blood pressure 118/76. Heart rate 66. Respiratory rate 18. Temperature 97.7. Oxygen saturation 95%. GENERAL: Ms. John is a 62-year-old female in no distress currently. NEUROLOGIC: Alert and oriented. LUNGS: Clear, but a little bit diminished in the bases. CARDIOVASCULAR: Regular rate and rhythm. Normal S1, S2. ABDOMEN: Soft, obese. Positive bowel sounds. Significantly less tender to the left side of the abdomen than she was yesterday. LABORATORY: White count 11,000, hemoglobin 13.1, hematocrit 40.3, platelet count 185. Chemistry unremarkable. ASSESSMENT: 1. Abdominal pain. 2. Constipation. 3. Urinary tract infection. 4. Chronic obstructive pulmonary disease without exacerbation. 5. Diabetes mellitus. 6. History of coronary artery disease. 7. Neuropathy. PLAN: Given her improvement post multiple bowel movements, likely her abdominal pain was secondary to constipation. We will continue to treat the urinary tract infection with antibiotics, repeat labs in the morning and if she remains stable, she will likely go home tomorrow. I will advance her diet this morning as well. #[id number] [facility]
[2018-01-23] MEDS: CEFUROXIME AXETIL TAB 250 MG TAB PO SCH ×2 (12:08→20:53)
[2018-01-23] MEDS: PANTOPRAZOLE SODIUM IV 40 MG VIAL IV SCH (12:09)
[2018-01-23] MEDS: ENOXAPARIN SODIUM 40 MG/0.4 ML SYG SUBCU SCH (12:09)
[2018-01-23] MEDS: traZODone HCL 50 MG TAB PO SCH (20:53)
[2018-01-23] MEDS: ALPRAZolam 0.5 MG TAB PO SCH (20:53)
[2018-01-23] MEDS: TOVIAZ 8 MG PO SCH (20:54)
[2018-01-24] MEDS ORDERED: PANTOPRAZOLE SODIUM TAB 40 MG PO ONE (04:28)
[2018-01-24] MEDS: SODIUM CHLORIDE 0.9% 1000ML 1,000 ML IVS PRN (05:04)
[2018-01-24] MEDS ORDERED: PANTOPRAZOLE SODIUM TAB 40 MG PO SCH (06:30)
[2018-01-24] MEDS: INSULIN LISPRO 100 UNITS/ML PEN SUBCU SCH ×2 (07:19→11:51)
[2018-01-24] MEDS: ALBUTEROL SULFATE 2.5 MG/3 ML VIAL NEB SCH (07:31)
[2018-01-24] MEDS: NICOTINE PATCH 21 MG TD SCH (09:35)
[2018-01-24] MEDS: ATORVASTATIN 20 MG TAB PO SCH (09:35)
[2018-01-24] MEDS: CEFUROXIME AXETIL TAB 250 MG TAB PO SCH (09:35)
[2018-01-24] MEDS: INSULIN GLARGINE 75 UNIT SC SCH (09:40)
[2018-01-24 11:06] VITALS: BP 128/73; TEMP 97.8; O2SAT 95
[2018-01-24] MEDS: ENOXAPARIN SODIUM 40 MG/0.4 ML SYG SUBCU SCH (12:31)
[2018-01-24] MEDS: [UNRECOGNIZED DRUG - OTHER] PO SCH (12:53)
[2018-01-24] MEDS: METFORMIN PO SCH (12:53)
[2018-01-24] MEDS: SAXAGLIPTIN PO SCH (12:53)
[2018-01-24] MEDS: NON-FORMULARY MEDICATION 1 EA MIS (Ticagrelor [Brilinta] 90 MG) PO SCH (12:54)
[2018-01-24] MEDS: LISINOPRIL 10 MG TAB PO SCH (12:55)
[2018-01-24] MEDS: PREGABALIN 75 MG CAP PO SCH (12:55)
[2018-01-24] MEDS: POLYETHYLENE GLYCOL 3350 17 GM PCKT PO SCH (12:56)
[2018-01-24] MEDS: SERTRALINE HCL 50 MG TAB PO SCH (12:59)
--- NOTE | 2018-01-24 13:51 | DS ---
SUPERVISING PHYSICIAN: Haley Martins MD DISCHARGE DIAGNOSIS: 1. Abdominal pain. 2. Severe constipation. 3. Urinary tract infection. 4. Chronic obstructive pulmonary disease without exacerbation. 5. Diabetes mellitus, type 2. 6. History of coronary artery disease. 7. Neuropathy. HISTORY OF PRESENT ILLNESS: This is a 62-year-old female patient who presented to the Emergency Room with nausea, vomiting and severe abdominal pain along with tremors and shaking. There was a question prior to her admission to the Emergency Room that she was actually shaking so badly that they thought she was having convulsions. She was brought by private vehicle to the Emergency Room. She had a temperature of 101.2. She apparently had not had a bowel movement in approximately 5 days. Her workup in the Emergency Room included labs as well as CT scan of the abdomen and pelvis. She had an elevated white count of 17.9. The recheck was 19.5. She was given Rocephin in the Emergency Room, but not started on any other antibiotic. Her CT scan of the abdomen was unremarkable except for the fact that she had a lot of stool in her colon. There was no indication of any inflammatory process going on at that time. Coagulation studies were normal. Chemistry indicates she might have been slightly dehydrated with an elevated BUN. HOSPITAL COURSE: She was admitted to the hospital. Further lab studies showed she had a urinary tract infection and was treated with Rocephin and Ceftin. Cultures were done. Her white count normalized to 8.2 today and her hemoglobin and hematocrit were stable at 12.2 and 37.7. Chemistries today showed electrolytes were within normal limits. Blood sugars were slightly elevated and in the last 24 hours ran between 114 and 218. Calcium was slightly low at 8.2. She was given magnesium citrate for her constipation as well as started on daily MiraLAX. Her home medications were restarted. She was given pantoprazole and DVT prophylaxis. She has had multiple bowel movements and at this point is feeling much improved and will be discharged home. DISCHARGE PLAN: The patient will be discharged home in stable condition. She is to resume her previous diet and medications. She will be sent home on Ceftin 250 mg b.i.d. for 7 additional days as well as MiraLAX 17 grams daily. She is to have a followup with her primary care physician, Dr. Manley, within the next 1 to 2 weeks. Her urine cultures have not been resulted and it may be beneficial to check her urine cultures at her followup appointment. It is also recommended she continue the 17 grams of MiraLAX daily to prevent further problems with constipation, increase activity as tolerated and return to the hospital for any further problems or complications. DISCHARGE MEDICATIONS: 1. Trazodone. 2. Toujeo. 3. Mobic. 4. Sertraline. 5. Tramadol. 6. Singulair. 7. Toviaz. 8. Lyrica. 9. Phenergan. 10. Prinivil. 11. Lipitor. 12. Brilinta. 13. Kombiglyze. 14. Afrin. 15. NovoLog. 16. Xanax. 17. Dulera. 18. Methocarbamol. 19. Proventil nebulizers. 20. Ceftin. 21. MiraLAX. #[id number] [facility]
== END 2018-01-24 13:15 | disposition home or self-care (01) | DRG 392 ==
LOC: ER 21:43 → OBSVTOIN 01-22 01:59 → INTOOBSV 01-22 01:59 → MS 01-22 01:59
PROVIDERS: ADMIT Nurse Practitioner; ATTEND Nurse Practitioner Acute Care
DX: K59.00 Constipation, unspecified (principal); N39.0 Urinary tract infection, site not specified; Z68.42 Body mass index [BMI] 45.0-49.9, adult; J44.9 Chronic obstructive pulmonary disease, unspecified; E11.40 Type 2 diabetes mellitus with diabetic neuropathy, unspecified; I25.10 Atherosclerotic heart disease of native coronary artery without angina pectoris; E86.0 Dehydration; E11.65 Type 2 diabetes mellitus with hyperglycemia; F41.1 Generalized anxiety disorder; F32.9 Major depressive disorder, single episode, unspecified; G30.0 Alzheimer's disease with early onset; F02.80 Dementia in other diseases classified elsewhere, unspecified severity, without behavioral disturbance, psychotic disturbance, mood disturbance, and anxiety; I25.2 Old myocardial infarction; I50.9 Heart failure, unspecified; I11.0 Hypertensive heart disease with heart failure; E66.9 Obesity, unspecified; F17.210 Nicotine dependence, cigarettes, uncomplicated; Z95.5 Presence of coronary angioplasty implant and graft; Z79.4 Long term (current) use of insulin; Z79.1 Long term (current) use of non-steroidal anti-inflammatories (NSAID); Z79.899 Other long term (current) drug therapy

== ENCOUNTER 2018-02-10 17:23 | Emergency (ER) | payer OTHER ==
[2018-02-10] MEDS ORDERED: diazePAM 5 MG TAB PO ONE (17:42)
[2018-02-10] MEDS ORDERED: fentaNYL CITRATE INJ 50 MCG/ML AMP IV ONE (17:42)
[2018-02-10] MEDS ORDERED: ORPHENADRINE CITRATE 30 MG/ML AMP IV ONE (17:42)
--- NOTE | 2018-02-10 17:46 | ED.PDOC ---
History of Present Illness - General Chief Complaint: Back Pain or Injury Stated Complaint: Low back pain Time Seen by Provider: 02/10/18 17:43 Source: patient, RN notes reviewed Exam Limitations: no limitations Additional Information: 62 YEAR OLD WHITE FEMALE COMPLAINTS OF SEVER BACK PAIN FOR 3-4 DAYS GETTING WORSE SHE HAS POLY ARTHRITIS HAS PAIN MOST OF THE TIME SHE IS ON HYDROCODONE SHE HAS DM CAD SP STENT AND IS ON BRILENTA - History of Present Illness Timing/Duration: 1 week Quality/Severity: moderate Back Pain Location: lumbar spine Method of Injury/Prior Injury: unknown Improving Factors: nothing Worsening Factors: movement Associated Symptoms: muscle spasms Allergies/Adverse Reactions: Allergies NO KNOWN ALLERGY Allergy (Verified 01/23/18 08:35) Home Medications: Ambulatory Orders Insulin Glargine [Toujeo Solostar] 75 unit SC DAILY 04/17/15 Trazodone HCl 150 mg PO DAILY 04/17/15 Albuterol Sulfate Nebs [Proventil Nebs] 2.5 mg INH BID 01/14/18 Alprazolam [Xanax] 1 mg PO BEDTIME 01/14/18 Atorvastatin Calcium [Lipitor] 80 mg PO DAILY 01/14/18 Fesoterodine Fumarate [Toviaz] 8 mg PO BEDTIME 01/14/18 Insulin Aspart [Novolog Flexpen] 35 unit SC TIDFD 01/14/18 Lisinopril [Prinivil] 10 mg PO DAILY 01/14/18 Meloxicam [Mobic] 15 mg PO DAILY 01/14/18 Methocarbamol 500 mg PO Q8H PRN 01/14/18 Mometasone Furoate-Formoterol [Dulera 200-5 Mcg/Act] 1 aer IN DAILY 01/14/18 Montelukast [Singulair] 10 mg PO PRN 01/14/18 Oxymetazoline Nasal [place] [Afrin Nasal [place]] 1 spray BNAS TID 01/14/18 Pregabalin [Lyrica] 75 mg PO BID 01/14/18 Promethazine Tab [Phenergan Tablet] 25 mg PO Q8H PRN 01/14/18 Saxagliptin-Metformin HCl [Kombiglyze Xr 5-1000 mg] 1 tab PO DAILY 01/14/18 Sertraline HCl [Zoloft] 25 mg PO DAILY 01/14/18 Ticagrelor [Brilinta] 90 mg PO BID 01/14/18 Tramadol HCl 50 mg PO Q6H PRN 01/14/18 Cefuroxime Axetil [Ceftin] 250 mg PO Q12H #14 tablet 01/24/18 Polyethylene Glycol 3350 [Miralax] 17 gm PO DAILY #30 pckt 01/24/18 Diazepam [Valium] 2 mg PO Q8HR #30 tab 02/10/18 Review of Systems - Review of Systems Constitutional: States: no symptoms reported EENTM: States: no symptoms reported Respiratory: States: no symptoms reported Cardiology: States: no symptoms reported Gastrointestinal/Abdominal: States: no symptoms reported Genitourinary: States: no symptoms reported Musculoskeletal: States: see HPI, back pain, joint pain Skin: States: no symptoms reported Neurological: States: no symptoms reported Endocrine: States: no symptoms reported Hematologic/Lymphatic: States: no symptoms reported Past Medical History (General) - Patient Medical History Hx Seizures: No Hx Stroke: Yes Hx Dementia: No Hx Asthma: Yes Hx of COPD: Yes Hx Cardiac Disorders: Yes - DC x 2 Hx Congestive Heart Failure: Yes Hx Pacemaker: No Hx Hypertension: Yes Hx Thyroid Disease: Yes Hx Diabetes: Yes Hx Gastroesophageal Reflux: Yes Hx Renal Disease: No Hx of HIV: No Hx MRSA: Yes MRSA Source:: Wound Surgical History: cholecystectomy, tonsillectomy, Hysterectomy, other - Vaccination History Hx Tetanus, Diphtheria Vaccination: Yes Hx Influenza Vaccination: Yes - 2017 Hx Pneumococcal Vaccination: No - Social History Hx Tobacco Use: Yes Hx Alcohol Use: No Hx Substance Use: No Hx Physical Abuse: No Hx Emotional Abuse: No Family Medical History - Family History Mother Family History: Unknown Living Status: Unknown Hx Family Hypertension: Yes - multiple family members Hx Cardiac Disease: Yes - multiple family members Hx Family Diabetes: Yes - multiple family members Hx Family Cancer: Yes - leukemia-brother Physical Exam - Physical Exam General Appearance: Alert, Obvious distress, Ill Appearing Eyes, Ears, Nose, Throat Exam: PERRL/EOMI, normal ENT inspection, TMs normal, pharynx normal Neck Exam: non-tender, full range of motion, normal alignment, normal inspection Cardiovascular/Respiratory: regular rate, rhythm, normal peripheral pulses, no JVD, normal breath sounds Gastrointestinal/Abdominal: normal bowel sounds, non tender, soft, no organomegaly Back Exam: muscle spasm Neurologic: emergency medicine specialist II-XII nml as tested, no motor/sensory deficits, alert, normal mood/affect, oriented x 3 Departure - Departure Clinical Impression: Degeneration of lumbosacral intervertebral disc Time of Disposition: 19:19 Disposition: Discharge to Home or Self Care Condition: Good Departure Forms: ED Discharge - Pt. Copy, Patient Portal Self Enrollment Instructions: DI for Low Back Pain Diet: resume usual diet Prescriptions: Diazepam [Valium] 2 mg PO Q8HR #30 tab Home Medications: Ambulatory Orders Insulin Glargine [Toujeo Solostar] 75 unit SC DAILY 04/17/15 Trazodone HCl 150 mg PO DAILY 04/17/15 Albuterol Sulfate Nebs [Proventil Nebs] 2.5 mg INH BID 01/14/18 Alprazolam [Xanax] 1 mg PO BEDTIME 01/14/18 Atorvastatin Calcium [Lipitor] 80 mg PO DAILY 01/14/18 Fesoterodine Fumarate [Toviaz] 8 mg PO BEDTIME 01/14/18 Insulin Aspart [Novolog Flexpen] 35 unit SC TIDFD 01/14/18 Lisinopril [Prinivil] 10 mg PO DAILY 01/14/18 Meloxicam [Mobic] 15 mg PO DAILY 01/14/18 Methocarbamol 500 mg PO Q8H PRN 01/14/18 Mometasone Furoate-Formoterol [Dulera 200-5 Mcg/Act] 1 aer IN DAILY 01/14/18 Montelukast [Singulair] 10 mg PO PRN 01/14/18 Oxymetazoline Nasal [place] [Afrin Nasal [place]] 1 spray BNAS TID 01/14/18 Pregabalin [Lyrica] 75 mg PO BID 01/14/18 Promethazine Tab [Phenergan Tablet] 25 mg PO Q8H PRN 01/14/18 Saxagliptin-Metformin HCl [Kombiglyze Xr 5-1000 mg] 1 tab PO DAILY 01/14/18 Sertraline HCl [Zoloft] 25 mg PO DAILY 01/14/18 Ticagrelor [Brilinta] 90 mg PO BID 01/14/18 Tramadol HCl 50 mg PO Q6H PRN 01/14/18 Cefuroxime Axetil [Ceftin] 250 mg PO Q12H #14 tablet 01/24/18 Polyethylene Glycol 3350 [Miralax] 17 gm PO DAILY #30 pckt 01/24/18 Diazepam [Valium] 2 mg PO Q8HR #30 tab 02/10/18
--- NOTE | 2018-02-10 19:03 | CT ---
EXAM: Abdomen/Pelvis w/Contrast CLINICAL INDICATION: Abdominal pain. Cough, low back pain COMPARISON: 01/21/2018 TECHNIQUE: The CT scan was done using contiguous axial 5 mm postcontrast sections through the abdomen and pelvis including IV contrast. This exam was performed according to our departmental dose-optimization program, which includes automated exposure control, adjustment of the mA and/or kV according to patient size and/or use of iterative reconstruction technique. FINDINGS: The visualized portions of the lung bases is are clear. The gallbladder is surgically absent. The liver, pancreas, spleen, kidneys, and adrenal glands have an unremarkable CT appearance. The aorta is normal in caliber. There are no dilated loops of small bowel. There is no free air, free fluid, or abscess. The appendix is normal. Mild to moderate degenerative changes are seen in the lumbar spine. Moderate constipation is noted. IMPRESSION: No evidence of an acute intra-abdominal process. Moderate constipation. Electronically signed by: Ulisses Walker MD 02/10/2018 7:02 PM CDT
[2018-02-10 19:38] VITALS: BP 165/71; TEMP 98; O2SAT 94
== END 2018-02-10 20:01 | disposition home or self-care (01) ==
LOC: ER 17:23
DX: M51.36 Other intervertebral disc degeneration, lumbar region (principal); E11.9 Type 2 diabetes mellitus without complications; I25.10 Atherosclerotic heart disease of native coronary artery without angina pectoris; I25.2 Old myocardial infarction; J44.9 Chronic obstructive pulmonary disease, unspecified; I11.0 Hypertensive heart disease with heart failure; I50.9 Heart failure, unspecified; E07.9 Disorder of thyroid, unspecified; K21.9 Gastro-esophageal reflux disease without esophagitis; Z95.5 Presence of coronary angioplasty implant and graft; Z79.899 Other long term (current) drug therapy; Z79.4 Long term (current) use of insulin
CPT/HCPCS: 36415; 74177; 80053; 85025; 85610; 85730; J2360; J3010

== ENCOUNTER 2018-03-05 00:05 | Emergency (ER) | payer OTHER ==
--- NOTE | 2018-03-05 01:31 | RAD ---
EXAM DESCRIPTION: Knee,Right 2 or More Views CLINICAL HISTORY: fell onto knees and rt hip COMPARISON: None. FINDINGS: 2 views of the right knee. Osteopenia. No acute fracture or dislocation. 3 compartment osteoarthritic change. IMPRESSION: 1. No acute fracture or dislocation. Electronically signed by: Homer Lincoln 03/05/2018 1:30 AM CDT
--- NOTE | 2018-03-05 01:33 | RAD ---
EXAM DESCRIPTION: Pelvis (accession [id number]), Hip Bilateral (accession [id number]) CLINICAL HISTORY: fell onto knees and rt hip COMPARISON: 02/10/2018 FINDINGS: Single view of the pelvis and 2 views of the bilateral hips. No acute fracture or dislocation. Osteopenia. Mild bilateral hip joint space narrowing and marginal osteophytosis. No definite abnormalities of sacrum or pelvic bones. Mild degenerative change of the visualized lumbar spine. Atherosclerotic vascular calcification. IMPRESSION: 1. No acute fracture or dislocation. Electronically signed by: Homer Lincoln 03/05/2018 1:32 AM CDT
--- NOTE | 2018-03-05 01:33 | RAD ---
EXAM DESCRIPTION: Pelvis (accession [id number]), Hip Bilateral (accession [id number]) CLINICAL HISTORY: fell onto knees and rt hip COMPARISON: 02/10/2018 FINDINGS: Single view of the pelvis and 2 views of the bilateral hips. No acute fracture or dislocation. Osteopenia. Mild bilateral hip joint space narrowing and marginal osteophytosis. No definite abnormalities of sacrum or pelvic bones. Mild degenerative change of the visualized lumbar spine. Atherosclerotic vascular calcification. IMPRESSION: 1. No acute fracture or dislocation. Electronically signed by: Homer Lincoln 03/05/2018 1:32 AM CDT
--- NOTE | 2018-03-05 01:34 | RAD ---
EXAM: 2 VIEWS LEFT KNEE RADIOGRAPHS CLINICAL INDICATION: Pain post fall. COMPARISON: No comparisons are available. FINDINGS: Moderate to severe chronic tricompartmental degenerative disease without fracture, dislocation or joint effusion. No radiopaque soft tissue foreign bodies or soft tissue gas. IMPRESSION: Tricompartmental degenerative disease. No fractures or effusion. Electronically signed by: Kanu Oswald MD 03/05/2018 1:32 AM CDT
--- NOTE | 2018-03-05 01:43 | CT ---
EXAM: NONCONTRAST BRAIN CT EXAMINATION. CLINICAL INDICATION: Left leg weakness post fall. COMPARISON: None. TECHNIQUE: Using low dose helical CT technique, thin section axial images were performed through the brain without the administration of intravenous or subarachnoid contrast material. FINDINGS: Right parietal occipital scalp hematoma without radiopaque foreign body or underlying skull fracture. Left parietal thin 3 mm thick subdural hematoma. Suspect adjacent parenchymal hemorrhagic contusion. No diffuse brain swelling or brain herniation. No hydrocephalus. Large subacute brain infarction. The brainstem and cerebellum are normal. Caudate heads, lentiform nuclei, thalami and internal capsules are normal. Bones of the skull and skull base are normal. The middle ears and mastoid air cells are clear. Mild to moderate chronic left maxillary sinusitis. The paranasal sinuses are otherwise clear. IMPRESSION: 1. 3 mm thick left parietal subdural hematoma with focal parenchymal hemorrhagic contusion in the adjacent left parietal lobe. 2. Large right parietal occipital scalp hematoma without radiopaque foreign body or underlying mass. This exam was performed according to our departmental dose-optimization program, which includes automated exposure control, adjustment of the mA and/or kV according to patient size and/or use of iterative reconstruction technique. Findings discussed with Dr. Sotomayor on 03/05/2018 at 0140 hours. Electronically signed by: Kanu Oswald MD 03/05/2018 1:41 AM CDT
--- NOTE | 2018-03-05 02:00 | ED.PDOC ---
History of Present Illness - General Chief Complaint: Neuro Symptoms/Deficits Stated Complaint: L side weakness Time Seen by Provider: 03/05/18 00:17 Source: patient Exam Limitations: no limitations - History of Present Illness Initial Comments: Hermila John 62 y/o female stated as she was about to get soda from the kitchen left side felt weak -stating "crumbled" fell face down to the floor which happened about 2000h then crawled on her back tried to get up reached for her walker but fell on her head.Son called her on her cell phone an hour later w /c she dropped when she fell but able to get to it then talked to her son who is in alcohol rehab.Son told her to get the police but they entered the bedroom door and then called up EMS.Denies slurred speech,burry vision or neck pains.Blood sugar-87(FSBS) Timing/Duration: 4-6 hours Severity: severe Episode Description: see hpi Improving Factors: nothing Worsening Factors: nothing Associated Symptoms: numbness in legs/feet - left side, trouble walking Allergies/Adverse Reactions: Allergies NO KNOWN ALLERGY Allergy (Verified 03/05/18 00:35) Home Medications: Ambulatory Orders Insulin Glargine [Toujeo Solostar] 75 unit SC DAILY 04/17/15 Trazodone HCl 150 mg PO DAILY 04/17/15 Albuterol Sulfate Nebs [Proventil Nebs] 2.5 mg INH BID 01/14/18 Alprazolam [Xanax] 1 mg PO BEDTIME 01/14/18 Atorvastatin Calcium [Lipitor] 80 mg PO DAILY 01/14/18 Fesoterodine Fumarate [Toviaz] 8 mg PO BEDTIME 01/14/18 Insulin Aspart [Novolog Flexpen] 35 unit SC TIDFD 01/14/18 Lisinopril [Prinivil] 10 mg PO DAILY 01/14/18 Meloxicam [Mobic] 15 mg PO DAILY 01/14/18 Methocarbamol 500 mg PO Q8H PRN 01/14/18 Pregabalin [Lyrica] 75 mg PO BID 01/14/18 Promethazine Tab [Phenergan Tablet] 25 mg PO Q8H PRN 01/14/18 Saxagliptin-Metformin HCl [Kombiglyze Xr 5-1000 mg] 1 tab PO DAILY 01/14/18 Sertraline HCl [Zoloft] 25 mg PO DAILY 01/14/18 Ticagrelor [Brilinta] 90 mg PO BID 01/14/18 Tramadol HCl 50 mg PO Q6H PRN 01/14/18 Cefuroxime Axetil [Ceftin] 250 mg PO Q12H #14 tablet 01/24/18 Polyethylene Glycol 3350 [Miralax] 17 gm PO DAILY #30 pckt 01/24/18 Diazepam [Valium] 2 mg PO Q8HR #30 tab 02/10/18 Aspirin [Aspirin Childrens] 81 mg PO 03/05/18 Dicyclomine HCl [Bentyl] 20 mg PO 03/05/18 Fluconazole [Diflucan] 200 mg PO 03/05/18 Terbinafine HCl [Lamisil] 250 mg PO 03/05/18 tiZANidine [Zanaflex] 4 mg PO 03/05/18 Review of Systems - Review of Systems Constitutional: States: no symptoms reported EENTM: States: no symptoms reported Respiratory: States: no symptoms reported Cardiology: States: no symptoms reported Gastrointestinal/Abdominal: States: no symptoms reported Genitourinary: States: no symptoms reported Musculoskeletal: States: no symptoms reported Skin: States: no symptoms reported Neurological: States: see HPI Endocrine: States: no symptoms reported Past Medical History (General) - Patient Medical History Hx Seizures: No Hx Stroke: Yes Hx Dementia: No Hx Asthma: Yes Hx of COPD: Yes Hx Cardiac Disorders: Yes - [place] x 2 Hx Congestive Heart Failure: Yes Hx Pacemaker: No Hx Hypertension: Yes Hx Thyroid Disease: Yes Hx Diabetes: Yes Hx Gastroesophageal Reflux: Yes Hx Renal Disease: No Hx of HIV: No Hx MRSA: Yes MRSA Source:: Wound Surgical History: cholecystectomy, tonsillectomy, other - hysterectomy,cardiac stent - Vaccination History Hx Tetanus, Diphtheria Vaccination: Yes Hx Influenza Vaccination: Yes - 2017 Hx Pneumococcal Vaccination: No - Social History Hx Tobacco Use: Yes Hx Alcohol Use: No Hx Substance Use: No Hx Physical Abuse: No Hx Emotional Abuse: No - Activities of Daily Living Grooming Ability: Independent Eating (Feeding) Ability: Independent Toileting Ability: Independent Family Medical History - Family History Mother Family History: Unknown Living Status: Unknown Hx Family Hypertension: Yes - multiple family members Hx Cardiac Disease: Yes - multiple family members Hx Family Diabetes: Yes - multiple family members Hx Family Cancer: Yes - leukemia-brother Physical Exam - Physical Exam General Appearance: Alert, Comfortable, No apparent distress, Other - scalp hematoma right parietal area Eye Exam: bilateral normal ENT Exam: normal ENT inspection, hearing grossly normal, pharynx normal, other - multiple decayed teeth,loose lower incisor Neck: supple, trachea midline Respiratory: lungs clear, normal breath sounds, no respiratory distress Cardiovascular/Chest: normal peripheral pulses, regular rate, rhythm, no murmur Peripheral Pulses: radial,right: 2+, radial,left: 2+ Gastrointestinal/Abdominal: normal bowel sounds, non tender, soft, no organomegaly Back Exam: no CVA tenderness, no vertebral tenderness Extremities Exam: other - ROM painful LEFT hip>RIGHT Mental Status: alert, oriented x 3 cylinder tester Exam: normal hearing, normal speech, PERRL Motor/Sensory: no pronator drift, weak motor strength LUE, weak motor strength LLE Skin Exam: normal color, warm/dry Progress - Progress Progress: 03/05/18 02:06 Vital Signs - 8 hr 03/05/18 00:10 Temperature 98.6 F Pulse Rate [ 82 monitor] Respiratory 18 Rate Blood Pressure 123/53 [Left Arm] O2 Sat by Pulse 97 Oximetry - Results/Orders Results/Orders: 03/05/18 00:17 IV Care:Saline Lock per Protoc QSHIFT EKG Assessment ONCE 03/05/18 00:19 EKG Assessment ONCE 03/05/18 00:30 EKG STAT Laboratory Results - last 24 hr 03/05/18 03/05/18 03/05/18 00:17 00:26 01:27 WBC 11.9 H RBC 4.59 Hgb 13.5 Hct 41.5 MCV 90.2 MCH 29.3 MCHC 32.5 L RDW 14.5 Plt Count 209 MPV 10.8 H Absolute Neuts (auto) 8.20 H Absolute Lymphs (auto) 2.50 Absolute Monos (auto) 0.90 H Absolute Eos (auto) 0.20 Absolute Basos (auto) 0.00 Neutrophils % 69.0 Lymphocytes % 21.0 Monocytes % 7.9 Eosinophils % 1.7 Basophils % 0.4 PT 9.9 INR 0.99 PTT (SP) 25.8 Sodium 140 Potassium 4.1 Chloride 104 Carbon Dioxide 29 Anion Gap 11.1 L BUN 28 H Creatinine 1.45 H BUN/Creatinine Ratio 19.3 Random Glucose 74 Serum Osmolality 283.5 Calcium 8.9 Magnesium 1.4 L Total Bilirubin 0.4 Direct Bilirubin < 0.1 Indirect Bilirubin 0.3 AST 22 ALT 17 Alkaline Phosphatase 79 Creatine Kinase 59 CK-MB (CK-2) 2.1 CK-MB (CK-2) % Not Reportable Troponin I 0.02 Serum Total Protein 7.2 Albumin 3.5 Urine Color Urine Appearance Urine pH Ur Specific [place] Urine Protein Urine Glucose (UA) Urine Ketones Urine Blood Urine Nitrite Urine Bilirubin Urine Urobilinogen Ur Leukocyte Esterase Urine RBC Urine WBC Ur Epithelial Cells Urine Bacteria Hyaline Casts Urine Mucus Urine Opiates Screen Negative Urine Barbiturates Negative Ur Phencyclidine Scrn Negative U Amphetamin/Meth Scrn Positive H U Benzodiazepines Scrn Positive H U Cocaine Metab Screen Negative U Cannabinoids Screen Negative Ethyl Alcohol 0.00 03/05/18 01:50 WBC RBC Hgb Hct MCV MCH MCHC RDW Plt Count MPV Absolute Neuts (auto) Absolute Lymphs (auto) Absolute Monos (auto) Absolute Eos (auto) Absolute Basos (auto) Neutrophils % Lymphocytes % Monocytes % Eosinophils % Basophils % PT INR PTT (SP) Sodium Potassium Chloride Carbon Dioxide Anion Gap BUN Creatinine BUN/Creatinine Ratio Random Glucose Serum Osmolality Calcium Magnesium Total Bilirubin Direct Bilirubin Indirect Bilirubin AST ALT Alkaline Phosphatase Creatine Kinase CK-MB (CK-2) CK-MB (CK-2) % Troponin I Serum Total Protein Albumin Urine Color Dk yellow H Urine Appearance Sl cloudy Urine pH 5.0 Ur Specific [place] >= 1.030 Urine Protein 30 Urine Glucose (UA) 100 H Urine Ketones Trace Urine Blood Negative Urine Nitrite Negative Urine Bilirubin Moderate Urine Urobilinogen 0.2 Ur Leukocyte Esterase Negative Urine RBC 0-1 Urine WBC 3-5 H Ur Epithelial Cells 3-5 Urine Bacteria 2+ H Hyaline Casts 1-3 Urine Mucus Moderate Urine Opiates Screen Urine Barbiturates Ur Phencyclidine Scrn U Amphetamin/Meth Scrn U Benzodiazepines Scrn U Cocaine Metab Screen U Cannabinoids Screen Ethyl Alcohol - EKG/XRAY/CT EKG: Sinus, nonspecific ST T wave Chg Comments: HR-87 XRAY: hip - no fractures CT Ordered: Yes - HEAD-3mm L parietal subdural hematoma Stroke Information - Onset of Symptoms Symptoms of Stroke: Weakness of limb Stroke Onset of Symptoms Date: 03/04/18 Stroke Onset of Symptoms Time: 20:00 - Contraindications Antithrombotic Contraindication: Medical Contraindication - brain bleed Departure - Departure Clinical Impression: Subdural hematoma, nontraumatic, Acute left-sided weakness, Renal insufficiency , Hypomagnesemia Fall Qualifiers: Encounter type: initial encounter Qualified Code(s): W19.XXXA - Unspecified fall, initial encounter Time of Disposition: 02:34 Disposition: Transfer to Hospital Condition: Fair Departure Forms: Patient Portal Self Enrollment Home Medications: Ambulatory Orders Insulin Glargine [Toujeo Solostar] 75 unit SC DAILY 04/17/15 Trazodone HCl 150 mg PO DAILY 04/17/15 Albuterol Sulfate Nebs [Proventil Nebs] 2.5 mg INH BID 01/14/18 Alprazolam [Xanax] 1 mg PO BEDTIME 01/14/18 Atorvastatin Calcium [Lipitor] 80 mg PO DAILY 01/14/18 Fesoterodine Fumarate [Toviaz] 8 mg PO BEDTIME 01/14/18 Insulin Aspart [Novolog Flexpen] 35 unit SC TIDFD 01/14/18 Lisinopril [Prinivil] 10 mg PO DAILY 01/14/18 Meloxicam [Mobic] 15 mg PO DAILY 01/14/18 Methocarbamol 500 mg PO Q8H PRN 01/14/18 Pregabalin [Lyrica] 75 mg PO BID 01/14/18 Promethazine Tab [Phenergan Tablet] 25 mg PO Q8H PRN 01/14/18 Saxagliptin-Metformin HCl [Kombiglyze Xr 5-1000 mg] 1 tab PO DAILY 01/14/18 Sertraline HCl [Zoloft] 25 mg PO DAILY 01/14/18 Ticagrelor [Brilinta] 90 mg PO BID 01/14/18 Tramadol HCl 50 mg PO Q6H PRN 01/14/18 Cefuroxime Axetil [Ceftin] 250 mg PO Q12H #14 tablet 01/24/18 Polyethylene Glycol 3350 [Miralax] 17 gm PO DAILY #30 pckt 01/24/18 Diazepam [Valium] 2 mg PO Q8HR #30 tab 02/10/18 Aspirin [Aspirin Childrens] 81 mg PO 03/05/18 Dicyclomine HCl [Bentyl] 20 mg PO 03/05/18 Fluconazole [Diflucan] 200 mg PO 03/05/18 Terbinafine HCl [Lamisil] 250 mg PO 03/05/18 tiZANidine [Zanaflex] 4 mg PO 03/05/18 Transfer to Outside Facility - Transfer Information Accepting Provider:: Dr.Myers-ER Lozada Accepting Facility: [facility] Reason for Transfer: required specialist not available - neurosurgeon
--- NOTE | 2018-03-05 02:10 | RAD ---
Examination: XR CHEST 1 VIEW dated 03/05/2018 12:18 AM CDT History: fall Comparison: 01/21/2018 Technique: 1 view chest Findings: The lungs are clear bilaterally. No pneumothorax or pleural effusion. The cardiac silhouette projects mildly enlarged. Impression: No acute findings. Mild cardiomegaly. Electronically signed by: Mickey Kent MD 03/05/2018 2:09 AM CDT
[2018-03-05 02:35] VITALS: TEMP 98.6
[2018-03-05 03:13] VITALS: BP 150/54; O2SAT 97
== END 2018-03-05 03:08 | disposition short-term general hospital (02) ==
LOC: ER 00:05
DX: I62.00 Nontraumatic subdural hemorrhage, unspecified (principal); G81.94 Hemiplegia, unspecified affecting left nondominant side; E83.42 Hypomagnesemia; N28.9 Disorder of kidney and ureter, unspecified; M17.0 Bilateral primary osteoarthritis of knee; M85.80 Other specified disorders of bone density and structure, unspecified site; I25.2 Old myocardial infarction; J44.9 Chronic obstructive pulmonary disease, unspecified; I50.9 Heart failure, unspecified; I11.0 Hypertensive heart disease with heart failure; E11.9 Type 2 diabetes mellitus without complications; E07.9 Disorder of thyroid, unspecified; K21.9 Gastro-esophageal reflux disease without esophagitis; Z86.73 Personal history of transient ischemic attack (TIA), and cerebral infarction without residual deficits; Z87.891 Personal history of nicotine dependence; Z79.4 Long term (current) use of insulin; Z79.82 Long term (current) use of aspirin; Z79.899 Other long term (current) drug therapy; W18.39XA Other fall on same level, initial encounter; Y92.000 Kitchen of unspecified non-institutional (private) residence as the place of occurrence of the external cause

== ENCOUNTER 2018-07-27 00:42 | Emergency (ER) | payer OTHER ==
[2018-07-27 01:06] VITALS: TEMP 97.1; O2SAT 97
[2018-07-27] MEDS ORDERED: KETOROLAC TROMETHAMINE INJ 30 MG/ML VIAL IM ONE (01:41)
[2018-07-27] MEDS ORDERED: HYDROcodone 7.5MG/APAP 325MG 1 EA TAB PO ONE (01:41)
--- NOTE | 2018-07-27 01:52 | CT ---
CLINICAL HISTORY: fall with pain COMPARISON: March 05, 2018. TECHNIQUE: CT HEAD WITHOUT IV CONTRAST on 07/27/2018 12:57 AM ECHOCARDIOGRAPHY TECHNOLOGIST This exam was performed according to our departmental dose-optimization program, which includes automated exposure control, adjustment of the mA and/or kV according to patient size and/or use of iterative reconstruction technique. FINDINGS: There is no acute hemorrhage, mass effect or midline shift. There is minimal encephalomalacia in the left parietal lobe. There is no hydrocephalus. There is no significant volume loss for age. There are mild patchy hypodensities within the periventricular and subcortical white matter, consistent with microangiopathic ischemic changes. The calvarium is intact. Orbits and globes are unremarkable. There is moderate thickening of the left and mild thickening of the right maxillary sinuses. Mastoid air cells are clear. IMPRESSION: Stable left parietal encephalomalacia. No definite acute findings. Electronically signed by: Elier Daniels MD 07/27/2018 1:49 AM ECHOCARDIOGRAPHY TECHNOLOGIST
--- NOTE | 2018-07-27 01:55 | RAD ---
EXAM: AP view(s) of the pelvis. INDICATION: Pain. COMPARISON: 03/05/2018. FINDINGS: Overlying backboard artifact somewhat limits exam. There is no acute fracture or dislocation. The hip and sacroiliac joints appear intact. The pubic symphysis is intact. No large soft tissue swelling. IMPRESSION: 1. No acute fracture. Electronically signed by: Alfredo Mills MD 07/27/2018 1:52 AM [facility] Workstation: [id number]
--- NOTE | 2018-07-27 02:07 | RAD ---
CLINICAL HISTORY: fall with pain COMPARISON: March 05, 2018. TECHNIQUE: XR HIP 2 OR MORE VIEWS 07/27/2018 12:57 AM FLOOR MOLDER FINDINGS: There is no fracture. Joint spaces are preserved. Soft tissues are unremarkable. IMPRESSION: No acute osseous findings. Electronically signed by: Elier Daniels MD 07/27/2018 2:03 AM FLOOR MOLDER
--- NOTE | 2018-07-27 02:12 | ED.PDOC ---
History of Present Illness - General Chief Complaint: Trauma Stated Complaint: fall, c/o left hip pain Time Seen by Provider: 07/27/18 00:57 Source: patient Exam Limitations: no limitations - History of Present Illness Initial Comments: The patient is a 63-year-old female presenting to the emergency room after having fallen backwards while getting in a pickup. The patient reports that she hit her head but did not pass out. She does take a blood thinner. No lacerations present. No new neck pain. The patient is also having left hip pain. She does appear to be neurovascularly at her baseline. No pain in the ankle or knee of the left leg. No pain with pelvic pressure. She moves all other extremities well. Timing/Duration: momentarily Severity: moderate Improving Factors: immobilization Worsening Factors: movement Associated Symptoms: denies symptoms Allergies/Adverse Reactions: Allergies NO KNOWN ALLERGY Allergy (Verified 03/05/18 00:35) Home Medications: Ambulatory Orders Insulin Glargine [Toujeo Solostar] 75 unit SC DAILY 04/17/15 Trazodone HCl 150 mg PO DAILY 04/17/15 Albuterol Sulfate Nebs [Proventil Nebs] 2.5 mg INH BID 01/14/18 Atorvastatin Calcium [Lipitor] 80 mg PO DAILY 01/14/18 Fesoterodine Fumarate [Toviaz] 8 mg PO BEDTIME 01/14/18 Insulin Aspart [Novolog Flexpen] 35 unit SC TIDFD 01/14/18 Lisinopril [Prinivil] 10 mg PO DAILY 01/14/18 Meloxicam [Mobic] 15 mg PO DAILY 01/14/18 Methocarbamol 500 mg PO Q8H PRN 01/14/18 Pregabalin [Lyrica] 75 mg PO BID 01/14/18 Tramadol HCl 50 mg PO Q6H PRN 01/14/18 tiZANidine [Zanaflex] 4 mg PO 03/05/18 Clindamycin HCl 300 mg PO TID 07/27/18 Donepezil Hydrochloride [Donepezil HCl] 10 mg PO DAILY 07/27/18 Saxagliptin-Metformin HCl [Kombiglyze Xr 5-1000 mg] 1 tablet PO DAILY 07/27/18 Ticagrelor [Brilinta] 90 mg PO BID 07/27/18 Tramadol HCl 50 mg PO Q8HR PRN #20 tab 07/27/18 Review of Systems - Review of Systems Constitutional: States: no symptoms reported EENTM: States: no symptoms reported Respiratory: States: no symptoms reported Cardiology: States: no symptoms reported Gastrointestinal/Abdominal: States: no symptoms reported Genitourinary: States: no symptoms reported Musculoskeletal: States: see HPI Skin: States: no symptoms reported Neurological: States: headache Endocrine: States: no symptoms reported All other Systems: No Change from Baseline Past Medical History (General) - Patient Medical History Hx Seizures: No Hx Stroke: Yes Hx Dementia: No Hx Asthma: Yes Hx of COPD: Yes Hx Cardiac Disorders: Yes - [place] x 2 Hx Congestive Heart Failure: Yes Hx Pacemaker: No Hx Hypertension: Yes Hx Thyroid Disease: Yes Hx Diabetes: Yes Hx Gastroesophageal Reflux: Yes Hx Renal Disease: No Hx of HIV: No Hx MRSA: Yes MRSA Source:: Wound Surgical History: cholecystectomy, tonsillectomy, other - Vaccination History Hx Tetanus, Diphtheria Vaccination: Yes Hx Influenza Vaccination: Yes - 2017 Hx Pneumococcal Vaccination: No - Social History Hx Tobacco Use: Yes Hx Alcohol Use: No Hx Substance Use: No Hx Physical Abuse: No Hx Emotional Abuse: No Family Medical History - Family History Mother Family History: Unknown Living Status: Unknown Hx Family Hypertension: Yes - multiple family members Hx Cardiac Disease: Yes - multiple family members Hx Family Diabetes: Yes - multiple family members Hx Family Cancer: Yes - leukemia-brother Physical Exam - Physical Exam General Appearance: Alert, Anxious Eye Exam: bilateral normal Ears, Nose, Throat: hearing grossly normal, normal pharynx Neck: full range of motion, supple Respiratory: lungs clear, normal breath sounds, no respiratory distress, no accessory muscle use Cardiovascular/Chest: normal peripheral pulses, no edema, other - regular rate Peripheral Pulses: radial,right: 2+, radial,left: 2+, dorsalis pedis,right: 2+, dorsalis pedis,left: 2+ Gastrointestinal/Abdominal: non tender - orbidly obese, soft Rectal Exam: deferred, other - pelvis is stable Back Exam: no CVA tenderness Extremity: no pedal edema, no calf tenderness, normal capillary refill, other - left hip is tender to palpation. No obvious palpable deformity. The patient does have some mild external rotation of the left which may be chronic due to previous surgery Neurologic: supply and distribution manager II-XII nml as tested, alert, oriented x 3, other - extremely anxious Skin Exam: normal color Comments: Vital Signs - 24 hr 07/27/18 00:56 Temperature 97.1 F L Pulse Rate [ 63 left] Respiratory 18 Rate Blood Pressure 151/76 [left] O2 Sat by Pulse 97 Oximetry Progress - Progress Progress: 07/27/18 02:13 the patient is a 63-year-old female that fell backwards while trying to get him a vehicle. Head CT shows no evidence of any acute pathology, no intracranial bleed. There is no evidence of concussion. X-ray of the pelvis and left hip shows no evidence of any fracture or dislocation. The patient appears to have sprained her left hip. She does need to get around with her walker. She was given a dose of pain medication here tonight. She does need to do range of motion exercises with the leg tomorrow. She needs to follow up with her primary care doctor in 2 weeks before she tries to ambulate without her walker. ER warnings were given. Departure - Departure Clinical Impression: Fall, accidental Qualifiers: Encounter type: initial encounter Qualified Code(s): W19.XXXA - Unspecified fall, initial encounter Sprain of left hip Qualifiers: Encounter type: initial encounter Qualified Code(s): S73.102A - Unspecified sprain of left hip, initial encounter Disposition: Discharge to Home or Self Care Condition: Fair Departure Forms: ED Discharge - Pt. Copy, Patient Portal Self Enrollment Diet: regular diet Activity: ambulate only with walker Prescriptions: Tramadol HCl 50 mg PO Q8HR PRN #20 tab PRN Reason: Moderate To Severe Pain Home Medications: Ambulatory Orders Insulin Glargine [Toujeo Solostar] 75 unit SC DAILY 04/17/15 Trazodone HCl 150 mg PO DAILY 04/17/15 Albuterol Sulfate Nebs [Proventil Nebs] 2.5 mg INH BID 01/14/18 Atorvastatin Calcium [Lipitor] 80 mg PO DAILY 01/14/18 Fesoterodine Fumarate [Toviaz] 8 mg PO BEDTIME 01/14/18 Insulin Aspart [Novolog Flexpen] 35 unit SC TIDFD 01/14/18 Lisinopril [Prinivil] 10 mg PO DAILY 01/14/18 Meloxicam [Mobic] 15 mg PO DAILY 01/14/18 Methocarbamol 500 mg PO Q8H PRN 01/14/18 Pregabalin [Lyrica] 75 mg PO BID 01/14/18 Tramadol HCl 50 mg PO Q6H PRN 01/14/18 tiZANidine [Zanaflex] 4 mg PO 03/05/18 Clindamycin HCl 300 mg PO TID 07/27/18 Donepezil Hydrochloride [Donepezil HCl] 10 mg PO DAILY 07/27/18 Saxagliptin-Metformin HCl [Kombiglyze Xr 5-1000 mg] 1 tablet PO DAILY 07/27/18 Ticagrelor [Brilinta] 90 mg PO BID 07/27/18 Tramadol HCl 50 mg PO Q8HR PRN #20 tab 07/27/18 Additional Instructions: the patient is a 63-year-old female that fell backwards while trying to get him a vehicle. Head CT shows no evidence of any acute pathology, no intracranial bleed. There is no evidence of concussion. X-ray of the pelvis and left hip shows no evidence of any fracture or dislocation. The patient appears to have sprained her left hip. She does need to get around with her walker. She was given a dose of pain medication here tonight. She does need to do range of motion exercises with the leg tomorrow. She needs to follow up with her primary care doctor in 2 weeks before she tries to ambulate without her walker. ER warnings were given.
[2018-07-27 02:34] VITALS: BP 144/69
== END 2018-07-27 02:34 | disposition home or self-care (01) ==
LOC: ER 00:42
DX: S73.102A Unspecified sprain of left hip, initial encounter (principal); J44.9 Chronic obstructive pulmonary disease, unspecified; I25.2 Old myocardial infarction; I50.9 Heart failure, unspecified; I11.0 Hypertensive heart disease with heart failure; E07.9 Disorder of thyroid, unspecified; E11.9 Type 2 diabetes mellitus without complications; K21.9 Gastro-esophageal reflux disease without esophagitis; V58.4XXA Person boarding or alighting a pick-up truck or van injured in noncollision transport accident, initial encounter; Z87.891 Personal history of nicotine dependence; Z86.73 Personal history of transient ischemic attack (TIA), and cerebral infarction without residual deficits; Z79.899 Other long term (current) drug therapy; Z79.4 Long term (current) use of insulin; Y92.9 Unspecified place or not applicable
CPT/HCPCS: 70450; 72170; 73502; J1885